=== PATIENT | male | born 1975 | race Caucasian/White ===

== ENCOUNTER 2018-11-20 05:49 | Emergency (ER) | payer OTHER ==
[~2018-11-20] VITALS: Ht 172.7 cm; Wt 100.0 kg
[2018-11-20 05:54] VITALS: BP 157/95
== END 2018-11-20 10:16 | disposition left against medical advice (07) ==
LOC: ER 05:49
DX: Z53.21 Procedure and treatment not carried out due to patient leaving prior to being seen by health care provider (principal); I10 Essential (primary) hypertension; Z87.442 Personal history of urinary calculi
CPT/HCPCS: 93005

== ENCOUNTER 2018-11-29 20:49 | Emergency (ER) | payer OTHER | END 2018-11-29 21:17 | disposition left against medical advice (07) | LOC: ER 20:49 | DX: R07.9 Chest pain, unspecified (principal); Z53.21 Procedure and treatment not carried out due to patient leaving prior to being seen by health care provider ==